=== PATIENT | female | born 1965 | race Caucasian/White ===

== ENCOUNTER 2023-12-11 23:50 | Inpatient (IN) | payer BC, OTHER ==
[~2023-12-11] VITALS: Ht 167.6 cm; Wt 147.7 kg
[~2023-12-11 23:50] MED LIST: ALPR0.5T3 PO; AROM25TA PO; ASPI81TA21 PO; BREO1INH INH; BREO1INH PO; BUPR-597 PO; BUSP5TA PO; CEFD1CAP9 PO; CULT10CA4 PO; CYCL5TAB PO; EXEM25TA PO; LASI20TA3 PO; MECL-86 PO; METR-265 PO; POTA-151 PO; PRED5PAK PO; PRED5TA PO; TOPA200T7 PO; TOPI200T7 PO; VENL75CA2 PO
[2023-12-12] MEDS ORDERED: ACET-1349 PO (05:04)
[2023-12-12] MEDS ORDERED: BUSP15TA48 PO (05:04)
[2023-12-12] MEDS ORDERED: ALBU8.5H INH (05:04)
[2023-12-12] MEDS ORDERED: HOME MED LIST COMPLETE! XX SCH (05:05)
[2023-12-12] MEDS: VENLAFAXINE **XR** 75MG CAPSULE PO SCH (08:29)
[2023-12-12] MEDS: predniSONE 5 MG TAB PO SCH (08:29)
[2023-12-12] MEDS: buPROPion **XL** TABLET 150MG (WELLBUTRIN XL) PO SCH (08:29)
[2023-12-12] MEDS ORDERED: ACETAMINOPHEN TAB 650MG DOSE (2X325MG) PO PRN (14:35)
[2023-12-12] MEDS ORDERED: MOM 30ML SUSPENSION UDC PO PRN (14:35)
[2023-12-12] MEDS ORDERED: diphenhydrAMINE 25MG CAP PO PRN (14:35)
[2023-12-12] MEDS ORDERED: MAALOX 30 ML SUSP *UDC PO PRN (14:35)
[2023-12-12] MEDS ORDERED: TOPIRAMATE (TopAMAX) 100 MG TAB PO SCH (21:00)
[2023-12-12] MEDS: IBUPROFEN 400MG TAB PO PRN (22:58)
[2023-12-12] MEDS: traZODone 50 MG TAB PO PRN (22:58)
[2023-12-13 06:25] VITALS: BP 144/91; TEMP 97.7; O2SAT 96
[2023-12-13] MEDS ORDERED: ALPRAZolam 0.5 MG TAB PO PRN (09:10)
[2023-12-13] MEDS ORDERED: ALBUTEROL 90 MCG/ACT 8GM HFA INHALER INH PRN (09:10)
[2023-12-13] MEDS ORDERED: MECLIZINE 25 MG TABLET PO PRN (09:10)
[2023-12-13] MEDS: VENLAFAXINE **XR** 75MG CAPSULE PO SCH (10:49)
[2023-12-13] MEDS: buPROPion **XL** TABLET 150MG (WELLBUTRIN XL) PO SCH (10:50)
[2023-12-13] MEDS: busPIRone 10 MG TAB PO SCH (10:50)
[2023-12-13 17:59] VITALS: BP 150/90; TEMP 97.8
[2023-12-13] MEDS: CYCLOBENZAPRINE 5MG TABLET PO PRN (21:05)
[2023-12-13] MEDS: TOPIRAMATE (TopAMAX) 100 MG TAB PO SCH (21:16)
[2023-12-14 06:15] VITALS: BP 145/67; TEMP 99.2; O2SAT 99
[2023-12-14] MEDS: predniSONE 5 MG TAB PO SCH (09:19)
[2023-12-14] MEDS ORDERED: TRAZ-252 PO (09:36)
[2023-12-14] MEDS ORDERED: BUSP30TA PO (09:36)
[2023-12-14 16:05] VITALS: BP 108/64; TEMP 97.4; O2SAT 99
== END 2023-12-14 12:09 | disposition home or self-care (01) | DRG 754 ==
LOC: M ED 23:50 → M ED INP 12-12 14:32 → M PSY 12-12 17:48
PROVIDERS: ADMIT Student in an Organized Health Care Education/Training Program; ATTEND Student in an Organized Health Care Education/Training Program
DX: F32.A Depression, unspecified (principal); F41.8 Other specified anxiety disorders; Z79.899 Other long term (current) drug therapy; Z88.2 Allergy status to sulfonamides; Z91.013 Allergy to seafood; Z88.8 Allergy status to other drugs, medicaments and biological substances

== ENCOUNTER → 2023-12-24 | Outpatient (CLI) | payer BC ==
[~2023-12-24] MED LIST changes: +ACET-1349 PO; +ALBU8.5H INH; +BUSP15TA48 PO; +BUSP30TA PO; +TRAZ-252 PO
== END ==
LOC: M IRPRO 15:03
PROVIDERS: ATTEND Nurse Practitioner Family
DX: Z53.9 Procedure and treatment not carried out, unspecified reason (principal)